=== PATIENT | female | born 1985 | race Caucasian/White ===

== ENCOUNTER 2018-03-08 11:00 | Inpatient (IN) | payer OTHER ==
[~2018-03-08] VITALS: Ht 172.7 cm; Wt 2.7 kg
== END 2018-03-30 15:38 | DRG 788 ==
LOC: LDR 03-28 01:25 → SURG-SUITE 03-28 01:25 → LDR 03-28 03:57 → SURG-SUITE 03-28 17:40 → OB/GYN 03-31 11:00
PROVIDERS: Obstetrics & Gynecology Maternal & Fetal Medicine
PROC: 4A1HXCZ Monitoring of Products of Conception, Cardiac Rate, External Approach (ICD-10-PCS; 2018-03-28)
PROC: 4A033R1 Measurement of Arterial Saturation, Peripheral, Percutaneous Approach (ICD-10-PCS; 2018-03-28)
PROC: 10D00Z1 Extraction of Products of Conception, Low, Open Approach (ICD-10-PCS; principal; 2018-03-28 18:00)
DX: O64.0XX0 Obstructed labor due to incomplete rotation of fetal head, not applicable or unspecified (principal); O62.1 Secondary uterine inertia; Z3A.39 39 weeks gestation of pregnancy; Z37.0 Single live birth

== ENCOUNTER 2018-03-19 08:41 | Outpatient (CLI) | payer OTHER | END 2018-03-19 09:48 | disposition home or self-care (01) | LOC: NST 08:41 | DX: Z34.83 Encounter for supervision of other normal pregnancy, third trimester (principal) ==

== ENCOUNTER 2018-03-26 09:22 | Outpatient (CLI) | payer OTHER | END 2018-03-26 10:17 | disposition home or self-care (01) | LOC: NST 09:22 | DX: Z34.83 Encounter for supervision of other normal pregnancy, third trimester (principal) ==